=== PATIENT | female | born 1985 | race Hispanic/Latino ===

== ENCOUNTER 2022-05-16 19:52 | Emergency (ER) | payer OTHER, SELFPAY ==
--- NOTE | ~2022-05-16 | XR_ITS ---
EXAMINATION: XR chest 2V DATE: 05/16/2022 21:11 INDICATION: Dizziness TECHNIQUE: PA and lateral views of the chest are obtained. COMPARISON: None available FINDINGS: The lungs are free of acute opacities. No pleural effusion or pneumothorax. The cardiomedia stinal silhouette is normal. There is mild thoracic spondylosis. Bilateral breast implants are noted. IMPRESSION: 1. No acute cardiopulmonary abnormality. Reviewed, dictated and finalized at location F. TRAINER
[2022-05-16 19:58] VITALS: BP 148/98; PULSE 123; RESP 18; TEMP 36.8; O2SAT 99
--- NOTE | 2022-05-16 20:00 | ECG_ITS ---
Measurements Intervals [place] Rate: 115 P: 61 [place]: 176 QRS: 66 QRSD: 83 T: 52 QT: 308 QTc: 427 Interpretive Statements SINUS TACHYCARDIA BORDERLINE T WAVE ABNORMALITY- ANTERIOR LEADS BASELINE ARTIFACT- I, III, AVR, AVL, AVF ABNORMAL ECG NO PREVIOUS ECG AVAILABLE FOR COMPARISON Electronically Signed On 05-17-2022 6:42:39 [employer] by Reza Benavidez D.O.
[2022-05-16 20:26] LABS: Basophils Absolute Auto 0.1 K/mm3 (0.0-0.1); Basophils Percent Auto 0.9 % (0.2-1.2); Eosinophils Absolute Auto 0.1 K/mm3 (0-0.3); Eosinophils Percent Auto 1.6 % (0-4.4); Hematocrit 41.2 % (37.0-47.0); Hemoglobin 14.3 g/dL (12.0-15.0); Immature Granulocyte Absolute 0.01 K/mm3 (0.00-0.031); Immature Granulocyte Percent A 0.2 % (0-0.5); Lymphocytes Absolute Auto 1.74 K/mm3 (0.9-3.2); Lymphocytes Percent Auto 31.2 % (18.3-44.2); Mean Corpuscular HGB Conc 34.7 g/dl (32-36); Mean Corpuscular Hemoglobin 33.3 pg (26-34); Mean Corpuscular Volume 95.8 fl (80-100); Mean Platelet Volume 8.6 fl (7.4-10.4); Monocytes Absolute Auto 0.6 K/mm3 (0.1-0.6); Monocytes Percent Auto 9.9 % (2.6-8.5); Neutrophils Absolute Auto 3.1 K/mm3 (1.3-6.7); Neutrophils Percent Auto 56.2 % (45.5-73.1); Platelet Count Result 206 k/mm3 (150-375); White Blood Count 5.6 K/mm3 (4.5-10.0)
[2022-05-16 20:45] LABS: Partial Thromboplastin Time 28.6 SECONDS (22.3-36.8); Prothrombin Time 12.3 Seconds (11.1-14.7)
[2022-05-16 21:07] LABS: Alanine Aminotransferase 36 U/L (6-35); Albumin Level 4.9 g/dL (3.5-5.1); Alkaline Phosphatase 90 U/L (38-126); Anion Gap 13 mmol/L (8-16); Aspartate Amino Transferase 72 U/L (14-36); Bilirubin,Total 0.6 mg/dL (0.2-1.3); Blood Urea Nitrogen 8 mg/dL (7-17); Calcium 8.7 mg/dL (8.4-10.2); Carbon Dioxide 23 mmol/L (22-30); Chloride 109 mmol/L (98-107); Estimated CRCL calculation 101 ml/min; Estimated Glomerular Filt Rate > 60; Glucose 142 mg/dL (65-110); Lipase 125 U/L (23-300); Potassium 3.5 mmol/L (3.4-5.0); Sodium 145 mmol/L (137-145)
[2022-05-16 21:18] LABS: Troponin I < 0.012 ng/mL (0.000-0.034)
--- NOTE | 2022-05-16 22:11 | PC.NURSE ---
Patient approached intake desk and informed promotion writer that she is going to leave. Patient alert and ambulatory leaving the ED doors.
== END 2022-05-16 22:11 | disposition left against medical advice (07) ==
LOC: ANHED 22:19
PROVIDERS: Emergency Provider Emergency Medicine
DX: R42 Dizziness and giddiness (principal)
CPT/HCPCS: 36415; 71046; 80053; 83690; 84484; 85025; 85610; 85730; 93005; 99199

== ENCOUNTER 2022-11-27 15:35 | Observation (INO) | payer OTHER, SELFPAY ==
[2022-11-27] VITALS (36 sets, daily range): BP systolic 124–139; BP diastolic 89–101; PULSE 79–128; RESP 12–28; TEMP 36.7–37; O2SAT 96–100; BMI 25.0
--- NOTE | ~2022-11-27 | CT_ITS ---
EXAMINATION: CT brain wo con INDICATION: Seizure COMPARISON: None TECHNIQUE: Standard unenhanced head CT. The dose-length product (DLP) was 605.33 mGy-cm. The mA was a djusted according to patient size. Iterative reconstruction technique was employed. FINDINGS: No intracranial hemorrhage, acute infarction, or abnormal mass lesion. The ventricles are n ormal. No abnormal mass effect or midline shift. The forbes-white matter differentiation is normal. The basal cisterns are patent. The orbits are normal. There is mild mucosal thickening of the paranasal sinuses. IMPRESSION: 1. No acute intracranial abnormality. Reviewed, dictated and finalized at location F.
--- NOTE | ~2022-11-27 | XR_ITS ---
EXAMINATION: XR wrist LT min 3V DATE: 11/27/2022 16:37 INDICATION: Left wrist pain TECHNIQUE: Posteroanterior, ulnar deviation, oblique, and lateral views of the left wrist were obtain ed. COMPARISON: None available FINDINGS: No fracture, dislocation, or subluxation. Negative ulnar variance is noted. The soft tissue s are unremarkable. IMPRESSION: 1. No acute osseous abnormality. Reviewed, dictated and finalized at location F.
--- NOTE | 2022-11-27 15:44 | ECG_ITS ---
Measurements Intervals [place] Rate: 105 P: 22 [place]: 172 QRS: 43 QRSD: 88 T: 30 QT: 351 QTc: 465 Interpretive Statements SINUS TACHYCARDIA BORDERLINE T WAVE ABNORMALITY- ANTERIOR LEADS BORDERLINE ECG COMPARED TO ECG 05/16/2022 20:15:59 NO SIGNIFICANT CHANGES Electronically Signed On 11-27-2022 20:37:42 CDT by Reza Benavidez D.O.
[2022-11-27] MEDS: SODIUM CHLORIDE 0.9% IV 1,000 ML 999 ML IV CONT (15:50)
[2022-11-27] MEDS: ONDANSETRON INJ 4 MG/2 ML VIAL IV PUSH (16:03)
[2022-11-27 16:10] LABS: Basophils Percent Auto 0.3 % (0.2-1.2); Eosinophils Absolute Auto 0.1 K/mm3 (0-0.3); Eosinophils Percent Auto 0.7 % (0-4.4); Hematocrit 39.8 % (37.0-47.0); Immature Granulocyte Absolute 0.04 K/mm3 (0.00-0.031); Immature Granulocyte Percent A 0.5 % (0-0.5); Lymphocytes Absolute Auto 1.42 K/mm3 (0.9-3.2); Lymphocytes Percent Auto 19.2 % (18.3-44.2); Mean Corpuscular HGB Conc 32.7 g/dl (32-36); Mean Corpuscular Hemoglobin 32.7 pg (26-34); Mean Platelet Volume 8.9 fl (7.4-10.4); Monocytes Absolute Auto 0.4 K/mm3 (0.1-0.6); Monocytes Percent Auto 5.6 % (2.6-8.5); Neutrophils Absolute Auto 5.4 K/mm3 (1.3-6.7); Neutrophils Percent Auto 73.7 % (45.5-73.1); Platelet Count Result 136 k/mm3 (150-375); Red Blood Count 3.98 M/mm3 (4.2-5.4); Red Cell Distribution Width 13.2 % (11.5-14.5); White Blood Count 7.4 K/mm3 (4.5-10.0)
[2022-11-27 16:20] LABS: Alanine Aminotransferase 48 U/L (6-35); Albumin Level 4.7 g/dL (3.5-5.1); Alkaline Phosphatase 79 U/L (38-126); Anion Gap 19 mmol/L (8-16); Aspartate Amino Transferase 110 U/L (14-36); Bilirubin,Total 0.7 mg/dL (0.2-1.3); Blood Urea Nitrogen 7 mg/dL (7-17); Calcium 8.8 mg/dL (8.4-10.2); Carbon Dioxide 13 mmol/L (22-30); Chloride 105 mmol/L (98-107); Creatine Kinase 173 U/L (30-135); Estimated CRCL calculation 101 ml/min; Estimated Glomerular Filt Rate > 60; Ethanol 38 mg/dL (<10); Glucose 114 mg/dL (65-110); Magnesium 1.7 mg/dL (1.6-2.3); Potassium 3.5 mmol/L (3.4-5.0); Sodium 137 mmol/L (137-145)
--- NOTE | 2022-11-27 16:22 | ED.SEIZURE ---
HPI - Seizure General Chief Complaint: Seizure Stated Complaint: seizure History of Present Illness HPI Narrative: This is a 36-year-old female with history of depression, is brought in by EMS after a reported seizure. EMS reports bystanders noted the patient appeared to be normal, when she fell with seizure-like activity lasting 30 to 45 seconds. On their arrival, the patient was alert though appeared confused. Her mentation gradually improved from A&Ox1 to A&Ox2. EMS also reports, conversation with the patient's significant other at the scene notes she has a history of alcohol abuse. The patient states her last drink was last night. Related Data Allergies Allergy/AdvReac Type Severity Reaction Status Date / Time No Known Allergies Allergy Verified 05/16/22 19:56 Review of Systems Review of Systems: CONSTITUTIONAL: Denies fever, chills, or sweats. CARDIOVASCULAR: Denies chest pain, palpitations, or edema. RESPIRATORY: Denies cough or dyspnea. GASTROINTESTINAL: Denies abdominal pain, nausea, vomiting, or diarrhea. GENITOURINARY: Denies dysuria or hematuria. SKIN: Denies rash or itching. MUSCULOSKELETAL: Denies back pain, joint pain, or myalgia. NEUROLOGIC: Denies headache, numbness, dizziness, or weakness. PSYCHIATRIC: Denies anxiety or depression. [facility] Surgical History Surgical History (Updated 11/27/22 @ 16:31 by Hema Bullock MD) No significant past surgical history Social History Social History (Updated 11/27/22 @ 16:32 by Hema Bullock MD) Smoking status: Never smoker Alcohol intake: current Exam Narrative: GENERAL: Well-developed, well-nourished, and in no acute distress. HEAD: Normocephalic, atraumatic. EYES: PERRLA and EOMI. pupils 4 mm and equal ENT: Nares clear, no rhinorrhea or epistaxis. Mucous membranes moist. Oropharynx without tonsillar hypertrophy exudate or other lesions. CHEST: Clear to auscultation. No respiratory distress. No wheezes rales or rhonchi HEART: Tachycardic with regular rhythm. No murmur heard. Normal peripheral pulses. ABDOMEN: Soft, nontender, nondistended, normal active bowel sounds. EXTREMITIES: Normal range of motion. No edema. SKIN: Warm, dry, no rash. NEURO: Alert and oriented x3. Moving all 4 limbs purposefully. Fine tremor noted PSYCH: Normal mood. Anxious affect Course Course Emergency Course: 17:40 - Lactic acid elevated to 9.1 with CK of 173, consistent with seizure. Chemistries otherwise unremarkable. CBC unremarkable. CT head not concerning for intracranial hemorrhage or fracture. X-ray of the left wrist not concerning for fracture. Alcohol level 38. I suspect the patient's seizures related to alcohol withdrawal. Initial CIWA score 15. Heart rate improved to 95 with IV phenobarbital. I discussed the patient with hospitalist NICHOLAS Chawla who accepts admission Vital Signs Vital signs: Vital Signs Temperature 98.1 F 11/27/22 15:33 Pulse Rate 128 H 11/27/22 15:33 Respiratory Rate 14 11/27/22 15:33 Blood Pressure 139/101 H 11/27/22 15:33 Pulse Oximetry 97 11/27/22 15:33 Oxygen Delivery Room Air 11/27/22 15:33 Temperature 98.1 F 11/27/22 15:33 Pulse Rate 101 H 11/27/22 18:35 Respiratory Rate 12 11/27/22 18:35 Blood Pressure 125/89 11/27/22 16:46 Pulse Oximetry 98 11/27/22 18:35 Oxygen Delivery Room Air 11/27/22 15:43 MDM - Seizure MDM Narrative Medical decision making narrative: Plan: Labs, imaging, [facility] protocol, reassess Differential Diagnosis Differential diagnosis: Likely generalized seizure and other (Alcohol withdrawal, seizure, intracranial hemorrhage, metabolic abnormality, other) Lab Data 11/27/22 16:03 11/27/22 16:03 Labs: Lab Results 11/27/22 Range/Units 16:03 WBC 7.4 (4.5-10.0) K/mm3 RBC 3.98 L (4.2-5.4) M/mm3 Hgb 13.0 (12.0-15.0) g/dL Hct 39.8 (37.0-47.0) % MCV 100.0 (80-100) fl MCH 32.7 (26-34) pg MCHC 32.
[2022-11-27 16:25] LABS: Lactic Acid Reflex 9.1 mmol/L (0.7-2.0)
[2022-11-27] MEDS: PHENobarbitaL sodium (*CRX) 130 MG/ML VIAL 100 MG IV PUSH (17:10)
[2022-11-27 17:26] LABS: Folic Acid 4.6 ng/mL (2.76->20)
[2022-11-27 19:07] LABS: Reflex Lactic Acid Yes or No Add Lactic
[2022-11-27] MEDS: THIAMINE HCL 200 MG/2 ML VIAL 100 MG IV PUSH (19:27)
--- NOTE | 2022-11-27 19:28 | PC.NURSE ---
Report received from LEIGH ANN Mata. Assumed care of patient at this time.
[2022-11-27 19:48] LABS: Lactic Acid 1.6 mmol/L (0.7-2.0)
--- NOTE | 2022-11-27 20:16 | PC.NURSE ---
Pt is currently being boarded in ED for IMU. Patient is not under my care. Admission completed by this RN.
--- NOTE | 2022-11-27 20:25 | PM.IMHP ---
H&P: HPI History of Present Illness Date/Time: 11/27/22 20:25 Chief Complaint: SEIZURE Narrative: THIS IS A 36-YEAR-OLD FEMALE WITH PAST MEDICAL HISTORY SIGNIFICANT FOR ALCOHOL DEPENDENCE PATIENT DRINKS 3 GLASSES OF WINE ON A DAILY BASIS, WAS BROUGHT TO THE EMERGENCY ROOM TODAY FOR EVALUATION AFTER SHE HAD A SEIZURE OR WHILE SHE WAS AT WORK WAS CLOCKED SONAL OUT FOR A BREAK WHEN SHE COLLAPSED. PATIENT ALCOHOL LEVEL WAS 38. AT THE TIME OF MY VISIT PATIENT IN TREMORS EXPRESSES REMORSE ABOUT HER DRINK AND STATES THAT SHE WANTS TO QUIT. REPORTS VERTIGO AND DIZZINESS AFTER HAVING TRAUMA TO THE HEAD WHILE RIDING HER BICYCLE AND BELIEVES THAT THE ALCOHOL IS MAKING IT WORSE HAS BEEN TAKING [id number] ANTI E VERTIGO MEDICATION. PATIENT HAS BEEN ADMITTED FOR FURTHER EVALUATION MANAGEMENT AND TREATMENT. EXAMINATION: XR wrist LT min 3V DATE: 11/27/2022 16:37 INDICATION: Left wrist pain TECHNIQUE: Posteroanterior, ulnar deviation, oblique, and lateral views of the left wrist were obtained. COMPARISON: None available FINDINGS: No fracture, dislocation, or subluxation. Negative ulnar variance is noted. The soft tissues are unremarkable. IMPRESSION: 1. No acute osseous abnormality. EXAMINATION: CT brain wo con ? INDICATION: Seizure ? COMPARISON: None TECHNIQUE: Standard unenhanced head CT. The dose-length product (DLP) was 605.33 mGy-cm. The mA was adjusted according to patient size. Iterative reconstruction technique was employed. ? FINDINGS: No intracranial hemorrhage, acute infarction, or abnormal mass lesion. The ventricles are normal. No abnormal mass effect or midline shift. The forbes-white matter differentiation is normal. The basal cisterns are patent. The orbits are normal. There is mild mucosal thickening of the paranasal sinuses. ? IMPRESSION: 1. No acute intracranial abnormality. Review of Systems Review of Systems: SEIZURE, ALCOHOL DEPENDENCE. Constitutional: Constitutional: Denies chills, Denies fatigue, Denies fever(s), Denies malaise and Denies weakness Eyes: Eyes: Denies change in vision ENT: Denies dysphagia, Reports vertigo, Reports dizziness and Denies odynophagia Cardiovascular: Cardiovascular: Denies chest pain, Denies radiating jaw, neck or arm pain and Denies palpitations Respiratory: Respiratory: Denies cough and Denies dyspnea Gastrointestinal: Gastrointestinal: Denies abdominal pain, Denies dyspepsia, Denies heartburn, Denies diarrhea, Denies nausea and Denies vomiting Genitourinary: Genitourinary: Denies dysuria Musculoskeletal: Musculoskeletal: Denies arthralgias and Denies limited range of motion Integumentary/Breasts: Skin/Breast: Denies rash Neurologic: Reports vertigo, Reports dizziness, Denies focal weakness, Reports seizure-like activity and Denies Sensory deficit (Neuro) Psychiatric: Psychiatric: Reports no additional psychiatric complaints and Reports as per HPI Endocrine: Endocrine: Denies fatigue, Denies flushing, Denies heat intolerance, Denies polyphagia, Denies polydipsia and Denies palpitations Hematologic/Lymphatic: Hematologic/Lymphatic: Reports no additional hematologic/lymphatic complaints and Reports as per HPI Allergic/Immunologic: Allergic/Immunologic: Reports no additional allergic/immunologic complaints and Reports as per HPI PMFSH Surgical History Surgical History (Updated 11/27/22 @ 16:31 by Hema Bullock MD) No significant past surgical history Family History Family History (Updated 11/27/22 @ 22:13 by Bernadine Rutherford RN) Sibling Diabetes mellitus Father Alcohol abuse Social History Social History (Updated 11/27/22 @ 16:32 by Heam Bullock MD) Smoking status: Never smoker Alcohol intake: current Drinks per week: 4 Lack of Transportation: No Lack of Food: Never True Current Housing: I Have Housing Concerned About Future Housing: No Difficulty Paying Gas/Electric Bills: No Difficulty Paying for Me
--- NOTE | 2022-11-27 21:31 | ADMGEN ---
This patient, Bridget Mcneal, was admitted to Medical Room 254-01. Patient/family oriented to hospital policies and general routines including ID bracelet, bed and alarms, visiting hours, pain management, procedures, bathroom and other care routines, personal items, smoking policy, room service/diet, and visiting hours. Information on how to activate the Rapid Response Team has been discussed. Patient/Family are encouraged to report perceived risks to care and to ask questions if they do not understand what they are told or what they should do.
[2022-11-27] MEDS: LORazepam INJ (*CRX) 2 MG/ML VIAL IV PUSH (21:53)
[2022-11-27 22:07] LABS: Glucose Point of Care 107 mg/dl (65-105)
[2022-11-27] MEDS: chlordiazePOXIDE (*CRX) 25 MG CAPSULE 50 MG PO (22:50)
[2022-11-28] VITALS (9 sets, daily range): BP systolic 118–133; BP diastolic 84–97; PULSE 89–101; RESP 12–16; TEMP 36.7–37.2; O2SAT 93–100
[2022-11-28] MEDS: chlordiazePOXIDE (*CRX) 25 MG CAPSULE 50 MG PO (05:38)
--- NOTE | 2022-11-28 05:52 | PC.NURSE ---
ACCUCHECK 63, ORANGE JUICE GIVEN TO PT, WILL RECHECK
[2022-11-28 05:56] LABS: Glucose Point of Care 63 mg/dl (65-105)
[2022-11-28 05:57] LABS: Basophils Percent Auto 0.3 % (0.2-1.2); Eosinophils Percent Auto 0.6 % (0-4.4); Hematocrit 38.9 % (37.0-47.0); Immature Granulocyte Absolute 0.02 K/mm3 (0.00-0.031); Immature Granulocyte Percent A 0.3 % (0-0.5); Immature Platelet Fraction Pct 4.2 % (0.9-11.2); Lymphocytes Absolute Auto 1.11 K/mm3 (0.9-3.2); Lymphocytes Percent Auto 17.6 % (18.3-44.2); Mean Corpuscular HGB Conc 33.4 g/dl (32-36); Mean Corpuscular Hemoglobin 33.2 pg (26-34); Mean Corpuscular Volume 99.2 fl (80-100); Mean Platelet Volume 9.7 fl (7.4-10.4); Monocytes Absolute Auto 0.5 K/mm3 (0.1-0.6); Monocytes Percent Auto 7.5 % (2.6-8.5); Neutrophils Absolute Auto 4.6 K/mm3 (1.3-6.7); Neutrophils Percent Auto 73.7 % (45.5-73.1); Platelet Count Result 139 k/mm3 (150-375); Red Blood Count 3.92 M/mm3 (4.2-5.4); White Blood Count 6.3 K/mm3 (4.5-10.0)
[2022-11-28 06:05] LABS: Anion Gap 11 mmol/L (8-16); Blood Urea Nitrogen 5 mg/dL (7-17); Calcium 8.4 mg/dL (8.4-10.2); Carbon Dioxide 19 mmol/L (22-30); Chloride 104 mmol/L (98-107); Estimated CRCL calculation 101 ml/min; Estimated Glomerular Filt Rate > 60; Glucose 68 mg/dL (65-110); Potassium 3.4 mmol/L (3.4-5.0); Sodium 134 mmol/L (137-145)
--- NOTE | 2022-11-28 06:20 | PC.NURSE ---
ACCUCHECK 80
[2022-11-28 06:21] LABS: Glucose Point of Care 80 mg/dl (65-105)
[2022-11-28] MEDS: THIAMINE HCL 200 MG/2 ML VIAL 100 MG IV PUSH (09:00)
[2022-11-28 12:03] LABS: Glucose Point of Care 80 mg/dl (65-105)
--- NOTE | 2022-11-28 12:24 | PM.IMPN ---
Progress Note: A&P Assessment and Plan (1) Alcohol withdrawal: Qualifiers: Complication of substance-induced condition: with unspecified complication Qualified Code(s): F10.939 - Alcohol use, unspecified with withdrawal, unspecified Code(s): F10.939 - Alcohol use, unspecified with withdrawal, unspecified Status: Acute Assessment and Plan: patient drinks approximately 3 glasses of wine daily. CIWA protocol initiated. Ativan CIWA greater than 8 Librium CIWA greater than 12 Thiamine daily (2) Generalized seizure: Code(s): R56.9 - Unspecified convulsions Status: Acute Assessment and Plan: Patient's suspected seizure could be due to alcohol withdrawal or a generalized seizure.She denies loss of urinary / bowel control or biting her tongue. No history of seizures in the past. No history of withdrawal in the past. Neurology consulted. EEG ordered (3) Alcohol dependence: Code(s): F10.20 - Alcohol dependence, uncomplicated Status: Acute Assessment and Plan: Patient mentioned interest in alcohol cessation. Care coordination consulted Subjective Date/time seen: 11/28/22 12:24 Interval history: Patient states that she is very fatigued and tired. She does not remember event at work where she has suspected seizure. She denies any lightheadedness, dizziness, nausea, vomiting, visual disturbances, chest pain shortness a breath. She denies ever having prior seizure or having any symptoms of withdrawal. She does have some tremors in her hands although she states that this is not typical for her. Neurology consulted due to possibility that patient had generalized seizure that was not alcohol related. EEG was ordered. Exam Narrative: GENERAL: Comfortable, no acute distress HENMT: moist mucous membranes EYES: EOM intact b/l NECK: no lymphadenopathy RESPIRATORY: clear to auscultation CARDIO: RRR GI: soft, nontender, bowel sounds present SKIN: no rashes EXTREMITIES: no edema, redness or tenderness , tremors present in bilateral hands Objective Data Vital Signs Vital Signs: Vital Signs - 24 hr 11/27/22 15:33 11/27/22 15:42 11/27/22 15:43 Temperature 98.1 F Pulse Rate 128 H Respiratory Rate 14 Blood Pressure 139/101 H Pulse Oximetry 97 Oxygen Delivery Room Air Room Air Room Air 11/27/22 15:45 11/27/22 15:43 11/27/22 15:45 Temperature Pulse Rate 116 H 120 H 115 H Respiratory Rate 16 16 Blood Pressure Pulse Oximetry 98 96 Oxygen Delivery 11/27/22 15:46 11/27/22 16:00 11/27/22 16:06 Temperature Pulse Rate 116 H 114 H 109 H Respiratory Rate 15 16 14 Blood Pressure 125/93 H 125/95 H Pulse Oximetry 97 100 Oxygen Delivery 11/27/22 16:15 11/27/22 16:16 11/27/22 16:31 Temperature Pulse Rate 105 H 106 H 104 H Respiratory Rate 15 16 15 Blood Pressure 126/95 H 124/89 Pulse Oximetry 100 100 100 Oxygen Delivery 11/27/22 16:32 11/27/22 16:45 11/27/22 16:46 Temperature Pulse Rate 99 102 H 99 Respiratory Rate 17 17 16 Blood Pressure 125/89 Pulse Oximetry 100 99 99 Oxygen Delivery 11/27/22 17:01 11/27/22 17:15 11/27/22 17:30 Temperature Pulse Rate 100 98 91 Respiratory Rate 16 13 14 Blood Pressure Pulse Oximetry 100 100 99 Oxygen Delivery 11/27/22 17:45 11/27/22 18:01 11/27/22 18:15 Temperature Pulse Rate 93 111 H 104 H Respiratory Rate 13 20 21 H Blood Pressure Pulse Oximetry 100 100 100 Oxygen Delivery 11/27/22 18:35 11/27/22 18:55 11/27/22 19:00 Temperature Pulse Rate 101 H 100 106 H Respiratory Rate 12 20 15 Blood Pressure Pulse Oximetry 98 100 100 Oxygen Delivery 11/27/22 19:07 11/27/22 19:17 11/27/22 19:30 Temperature Pulse Rate 103 H 122 H 107 H Respiratory Rate 16 28 H 18 Blood Pressure 127/98 H Pulse Oximetry 100 98 Oxygen Delivery 11/27/22 19:40 11/27/22 19:46 11/27/22 20:00 Te
== END 2022-11-28 17:24 | disposition left against medical advice (07) ==
LOC: ANHED 17:45 → ANH3MEDSUR 19:22 → ANH2MED 21:17
PROVIDERS: Admitting Provider Internal Medicine; Emergency Provider Preventive Medicine Aerospace Medicine; PCP Nurse Practitioner; Visit Provider General Practice
DX: F10.939 Alcohol use, unspecified with withdrawal, unspecified (principal); Y90.1 Blood alcohol level of 20-39 mg/100 ml; R56.9 Unspecified convulsions; R42 Dizziness and giddiness; R00.0 Tachycardia, unspecified; M25.532 Pain in left wrist
CPT/HCPCS: 36415; 70450; 73110; 80048; 80053; 80307; 82550; 82607; 82746; 82948; 83605; 83735; 84425; 85025; 85055; 93005; 96361; 96374; 96375; 99285; A9270; G0378; G0379; J2060; J2405; J2560; J3411; J7030

== ENCOUNTER 2023-10-10 18:34 | Emergency (ER) | payer MEDICAID, SELFPAY ==
[2023-10-10] VITALS (11 sets, daily range): BP systolic 101–144; BP diastolic 68–91; PULSE 91–126; RESP 16–97; TEMP 36.6–36.8; O2SAT 24–100
--- NOTE | ~2023-10-10 | CT_ITS ---
CT brain wo con Ordering provider: Parish Petit MD History: 37 years Female with . fall w/ etoh . Comparison: None. Technique: CT of the head without contrast. Radiation reduction technique utilized. DLP is 681 mGy-cm. FINDINGS: BRAIN PARENCHYMA AND CSF SPACES: Mild leukoaraiosis and diffuse cortical atrophy. Mild atheromatous d isease. No midline shift, mass effect or hemorrhage. The brain parenchyma and CSF spaces are otherwi se normal. VISUALIZED PARANASAL SINUSES: Well aerated. MASTOIDS: Well aerated. BONES: The bones appear intact. SOFT TISSUES: Visualized nasopharynx is normal. Superficial soft tissues are normal. IMPRESSION: No acute intracranial findings. Reviewed, dictated and finalized at location A.
--- NOTE | ~2023-10-10 | CT_ITS ---
CT cervical spine wo con Ordering provider: Parish Petit MD History: . fall w/ etoh . Comparison: None. Technique: CT of the cervical spine was performed without contrast. Sagittal and coronal reformatted images were also obtained and reviewed. Automated exposure control and iterative reconstruction shakira hnique were employed. The dose-length product was 397.97 mGy-cm. FINDINGS: VERTEBRAE: No subluxation or acute fracture. The occipital condyles are intact. DISC SPACES: Normal. PARASPINOUS SOFT TISSUES: Normal. IMPRESSION: No acute osseous abnormality cervical spine. Reviewed, dictated and finalized at location A.
--- NOTE | 2023-10-10 19:14 | ED.FALL ---
HPI - Fall General Chief Complaint: Fall Stated Complaint: FALL Time Seen by Provider: 10/10/23 18:59 History of Present Illness HPI Narrative: This is a 37 year female with a past medical history including alcohol dependence and closed head injuries in the past with TBI. Today patient presents as a follow-up intoxicated via EMS. Patient does have evidence of obvious head trauma as clinically intoxicated, slurring her speech, smells of alcohol, not making any coherent sense. Patient is verbally aggressive and threatening to staff. Patient is refusing to undergo evaluation but is not able to make her own medical decisions at this time given her clinical intoxication and other suspicious pathology such as intracranial hemorrhage which is high differential in her situation. Review of systems is difficult to obtain as patient is not cooperative. Related Data Home Medications Medication Instructions Recorded Confirmed dimenhydrinate 50 mg tablet 50 mg PO Q4-6H PRN DIZZINESS 11/27/22 11/27/22 (Dramamine) Allergies Allergy/AdvReac Type Severity Reaction Status Date / Time No Known Allergies Allergy Verified 10/10/23 18:43 Review of Systems Review of Systems: Unable to fully obtain due to patient's level of mental status [facility] Surgical History Surgical History No significant past surgical history Family History Family History Sibling Diabetes mellitus Father Alcohol abuse Social History Social History Smoking status: Never smoker Alcohol intake: current Drinks per week: 4 Lack of Transportation: No Lack of Food: Never True Current Housing: I Have Housing Concerned About Future Housing: No Difficulty Paying Gas/Electric Bills: No Difficulty Paying for Meds: No Currently Unemployed: No Education: Bachelor's Degree Difficulty w/ Childcare or Family Care: No Spiritual care concerns: No Exam Narrative: GENERAL: Clinically intoxicated, disheveled in appearance, aggressive verbally threatening HEAD: Normocephalic without obvious signs of head trauma with hematoma formation behind the left periauricular area with laceration to the external auricle. EYES: [PERRLA and EOMI.] Pupils are 4 mm and reactive, conjunctival injection is noted ENT: Nares clear, no rhinorrhea or epistaxis. Mucous membranes dry NECK: Supple. CHEST: [Clear to auscultation. No respiratory distress.] HEART: Tachycardic pulse of warm perfused extremities ABDOMEN: [Soft, nondistended], [nontender], [No rigidity or guarding] EXTREMITIES: Normal range of motion. [No edema.] SKIN: Warm, dry, no rash. NEURO: Seems to move all extremities equally, not alert or oriented, clinically intoxicated, limited examination due to patient's level of mental status and uncooperative nature PSYCH: Verbally aggressive, agitated, combative Course Vital Signs Vital signs: Vital Signs Temperature 36.7 C 10/10/23 18:35 Pulse Rate 126 H 10/10/23 18:35 Respiratory Rate 16 10/10/23 18:35 Blood Pressure 144/91 H 10/10/23 18:35 Pulse Oximetry 100 10/10/23 18:35 Oxygen Delivery Room Air 10/10/23 18:35 Temperature 36.6 C 10/10/23 22:12 Pulse Rate 103 H 10/11/23 00:30 Respiratory Rate 15 10/11/23 00:30 Blood Pressure 101/60 10/11/23 00:30 Pulse Oximetry 100 10/11/23 00:30 Oxygen Delivery Nasal Cannula 10/10/23 19:49 Oxygen Flow Rate 2 10/10/23 19:49 Procedures Laceration Laceration 1: Date: 10/10/23 Time: 19:43 Site: other (left ear, auricle) Side (If applicable): left Size (cm): 1 Description: linear Depth: [id number] Local Anesthetic: none Pre-repair: wound explored, irrigated and minor debridement ====== Skin Level ======
[2023-10-10] MEDS: MIDAZOLAM HCL (*CRX) 2 MG/2 ML VIAL IM (19:18)
[2023-10-10] MEDS: HALOPERIDOL LACTATE 5 MG/ML VIAL IM (19:19)
--- NOTE | 2023-10-10 19:26 | PC.NURSE ---
Patient was making racist remarks towards staff and slapping and hitting staff. Per EDP Dr. Omalley VRBO 2mg Versed and 5mg Haldol both IM. During medication administration patient was still slapping and hitting nursing staff and security. Per EDP Dr. Omalley place patient into soft restraints. Soft restraints were obtained, however patient was able to be calmed down and de-escalated. Soft restraints still not applied but at bedside if needed.
[2023-10-10 19:43] LABS: Basophils Percent Auto 0.9 % (0.2-1.2); Eosinophils Absolute Auto 0.1 K/mm3 (0-0.3); Eosinophils Percent Auto 1.3 % (0-4.4); Hematocrit 38.3 % (37.0-47.0); Immature Granulocyte Absolute 0.02 K/mm3 (0.00-0.031); Immature Granulocyte Percent A 0.4 % (0-0.5); Lymphocytes Absolute Auto 1.73 K/mm3 (0.9-3.2); Lymphocytes Percent Auto 37.9 % (18.3-44.2); Mean Corpuscular HGB Conc 33.9 g/dl (32-36); Mean Corpuscular Hemoglobin 33.3 pg (26-34); Mean Corpuscular Volume 98.2 fl (80-100); Mean Platelet Volume 8.8 fl (7.4-10.4); Monocytes Absolute Auto 0.5 K/mm3 (0.1-0.6); Monocytes Percent Auto 11.2 % (2.6-8.5); Neutrophils Absolute Auto 2.2 K/mm3 (1.3-6.7); Neutrophils Percent Auto 48.3 % (45.5-73.1); Platelet Count Result 204 k/mm3 (150-375); Red Cell Distribution Width 13.8 % (11.5-14.5); White Blood Count 4.6 K/mm3 (4.5-10.0)
[2023-10-10 19:53] LABS: Alanine Aminotransferase 38 U/L (6-35); Albumin Level 4.4 g/dL (3.5-5.1); Alkaline Phosphatase 79 U/L (38-126); Anion Gap 19 mmol/L (4-12); Aspartate Amino Transferase 51 U/L (14-36); Bilirubin,Total 0.2 mg/dL (0.2-1.3); Blood Urea Nitrogen 7 mg/dL (7-17); Calcium 8.7 mg/dL (8.4-10.2); Carbon Dioxide 20 mmol/L (22-30); Chloride 109 mmol/L (98-107); Estimated CRCL calculation 100 ml/min; Estimated Glomerular Filt Rate > 60; Glucose 103 mg/dL (65-110); Potassium 3.7 mmol/L (3.4-5.0); Sodium 148 mmol/L (137-145)
[2023-10-10 20:06] LABS: Ethanol 423 mg/dL (<10)
[2023-10-10 20:09] LABS: Beta HCG Quantitative < 2.39 mIU/ML
[2023-10-10] MEDS: THIAMINE HCL INJ 100 MG, FOLIC ACID INJ 1 MG, MAGNESIUM SULFATE INJ 1 GM in LACTATED RI... 1000 MG IV CONT (20:15)
[2023-10-10] MEDS: TETANUS,DIPHTHERIA,AC PERTUSSIS ADULT (0.5 ML) BOOSTRIX IM (20:19)
[2023-10-10 23:41] LABS: Anion Gap 13 mmol/L (4-12); Blood Urea Nitrogen 5 mg/dL (7-17); Calcium 8.2 mg/dL (8.4-10.2); Carbon Dioxide 24 mmol/L (22-30); Chloride 109 mmol/L (98-107); Estimated CRCL calculation 100 ml/min; Estimated Glomerular Filt Rate > 60; Glucose 90 mg/dL (65-110); Potassium 3.7 mmol/L (3.4-5.0); Sodium 146 mmol/L (137-145)
[2023-10-11 00:30] VITALS: BP 101/60; PULSE 103; RESP 15; O2SAT 100
== END 2023-10-11 01:04 | disposition home or self-care (01) ==
PROVIDERS: Emergency Provider Student in an Organized Health Care Education/Training Program; PCP Nurse Practitioner
DX: S01.312A Laceration without foreign body of left ear, initial encounter (principal); F10.229 Alcohol dependence with intoxication, unspecified; Y90.8 Blood alcohol level of 240 mg/100 ml or more; Z23 Encounter for immunization; W19.XXXA Unspecified fall, initial encounter
CPT/HCPCS: 12011; 36415; 70450; 72125; 80048; 80053; 80307; 83735; 84702; 85025; 90471; 90715; 96365; 96372; 99284; J1630; J2250; J3411; J3475; J7120

== ENCOUNTER 2024-01-08 17:07 | Emergency (ER) | payer BC, SELFPAY ==
--- NOTE | ~2024-01-08 | CT_ITS ---
EXAMINATION: CT cervical spine wo con DATE: 01/08/2024 17:31 INDICATION: Fall TECHNIQUE: Computed tomography (CT) of the cervical spine was performed without intravenous contrast. Automated exposure control and iterative reconstruction technique were employed. Exam dose: 251.92 mGy-cm total exam DLP. COMPARISON: None FINDINGS: Normal alignment at the atlantoaxial joints. C1 and C2 are normally aligned and the odontoi d process is intact. No fracture or dislocation or locked facet or prevertebral soft tissue swelling. Cervical interspaces are preserved. IMPRESSION: No cervical spine fracture, dislocation or locked facet Reviewed, dictated and finalized at [facility]. Reviewed, dictated and finalized at [facility].
--- NOTE | ~2024-01-08 | CT_ITS ---
EXAMINATION: CT brain wo con DATE: 01/08/2024 17:31 INDICATION: Fall. Head injury. TECHNIQUE: Computed tomography (CT) of the head was performed without intravenous contrast. The mA wa s adjusted according to patient size. Iterative reconstruction technique was employed. Exam dose: 60 5.33 mGy-cm total exam DLP. COMPARISON: 10/10/2023 CT head FINDINGS: No intracranial mass lesion or hemorrhage or cerebrovascular accident. No midline shift or mass effect. There is greater than expected prominence of the cortical sulci and cerebellar folia con sistent with cerebral and cerebellar volume loss for patient age. No subdural or epidural hematoma. No fracture or bone destruction of the cranial vault. The mastoid air cells and included paranasal si nuses are unremarkable. IMPRESSION: No acute intracranial finding or skull fracture Reviewed, dictated and finalized at [facility]. Reviewed, dictated and finalized at [facility].
[2024-01-08 17:06] VITALS: BP 127/87; PULSE 102; RESP 14; TEMP 36.8; O2SAT 100
--- NOTE | 2024-01-08 17:14 | ECG_ITS ---
Test Date: 2024-01-08 17:38:39 Measurements Intervals [place] Rate: 91 P: -11 NV: 132 QRS: 44 QRSD: 94 T: 48 QT: 348 QTc: 430 Interpretive Statements SINUS RHYTHM NORMAL ECG No previous ECG available for comparison Electronically Signed On 01-09-2024 13:06:26 CDT by Adriano Victoria M.D.
--- NOTE | 2024-01-08 17:17 | ED.FALL ---
HPI - Fall General Chief Complaint: Fall Stated Complaint: fall, +ETOH Time Seen by Provider: 01/08/24 17:07 Source: patient Mode of arrival: ambulatory Limitations: no limitations History of Present Illness HPI Narrative: this is a 38-year-old female with history of alcohol dependence who presents to the ED via EMS for chief complaint of of fall while intoxicated. Patient does report that she think she fell down and hit her head on a rock. States that she was with her friend at the time who called EMS. She states that she had a glass a wine around 2:00 a.m. but has not had any other alcohol or substances. Patient states that she has a little bit of a headache but this has been ongoing intermittently for several years and not out of the ordinary. States that she has history of closed head injury with TBI in the past. overall patient is not a significantly reliable historian. she tried to refuse EMS transport but EMS informed the ED the patient was unable to walk on her own. Related Data Home Medications Medication Instructions Recorded Confirmed dimenhydrinate 50 mg tablet 50 mg PO Q4-6H PRN DIZZINESS 11/27/22 11/27/22 (Dramamine) Allergies Allergy/AdvReac Type Severity Reaction Status Date / Time No Known Allergies Allergy Verified 01/08/24 18:10 Review of Systems Review of Systems: All systems as dictated in [facility] Surgical History Surgical History No significant past surgical history Family History Family History Sibling Diabetes mellitus Father Alcohol abuse Social History Social History Smoking status: Never smoker Alcohol intake: current Drinks per week: 4 Lack of Transportation: No Lack of Food: Never True Current Housing: I Have Housing Concerned About Future Housing: No Difficulty Paying Gas/Electric Bills: No Difficulty Paying for Meds: No Currently Unemployed: No Education: Bachelor's Degree Difficulty w/ Childcare or Family Care: No Spiritual care concerns: No Exam Narrative: GENERAL: appears clinically intoxicated. Able to sit up in bed and hold a conversation. HEAD: Normocephalic, atraumatic. EYES: PERRLA and EOMI. ENT: Nares clear, no rhinorrhea or epistaxis. Mucous membranes moist. Oropharynx without tonsillar hypertrophy exudate or other lesions. NECK: Supple. No adenopathy or masses. CHEST: No respiratory distress. Clear to auscultation. No wheezes rales or rhonchi HEART: Regular rate and rhythm. No murmur heard. Normal peripheral pulses. ABDOMEN: Soft, nontender, nondistended, normal active bowel sounds. MSK: Normal range of motion. No edema. SKIN: Warm, dry, no rash. NEURO: Clinically intoxicated. Slurring words and speech is at times incoherent, However answers most questions somewhat appropriately. Alert and oriented x4. No focal deficits. PSYCH: Normal mood and affect. Course Vital Signs Vital signs: Vital Signs Temperature 98.2 F 01/08/24 17:06 Pulse Rate 102 H 01/08/24 17:06 Respiratory Rate 14 01/08/24 17:06 Blood Pressure 127/87 01/08/24 17:06 Pulse Oximetry 100 01/08/24 17:06 Oxygen Delivery Room Air 01/08/24 17:06 Temperature 98 F 01/08/24 19:46 Pulse Rate 72 01/08/24 19:46 Respiratory Rate 22 H 01/08/24 19:46 Blood Pressure 134/76 01/08/24 19:46 Pulse Oximetry 98 01/08/24 19:46 Oxygen Delivery Room Air 01/08/24 17:06 MDM - Fall MDM Narrative Medical decision making narrative: This is a 38 yo female who presents to the ED for a fall while intoxicated. Patient reports to of drink 1 glass of wine. Vitals are normal. Exam shows patient is clinically intoxicated. There is no focal neurologic deficit detected on exam. Lab work shows an alcohol level 480. CMP showed slight hypernatremia and hyperchloremia, likely due to decreased intake of water. TSH slightly low as well. Started on IV fluids here Cervical spine and brain CT imaging do not show any acute findings. Patient was able to get a sober ride back home and will be discharged in stable condition. Supportive measures discussed and return precautions given. Patient is understanding and agreeable with plan for discharge with PCP follow-up. Lab Data 01/08/24 17:21 01/08/24 17:21 Labs: Lab Results 10/26/24 Range/Units 17:21 WBC 4.5 (4.5-10.0) K/mm3 RBC 4.28 (4.2-5.4) M/mm3 Hgb 14.5 (12.0-15.0) g/dL Hct 41.9 (37.0-47.0) % MCV 97.9 (80-100) fl MCH 33.9 (26-34) pg MCHC 34.6 (32-36) g/dl RDW 13.0 (11.5-14.5) % Plt Count 228 (150-375) k/mm3 MPV 8.5 (7.4-10.4) fl Immature Gran % (Auto) 0.2 (0-0.5) % Neut % (Auto) 45.1 L (45.5-73.1) % Lymph % (Auto) 47.0 H (18.3-44.2) % Caroline % (Auto) 6.2 (2.6-8.5) % Eos % (Auto) 1.1 (0-4.4) % Baso % (Auto) 0.4 (0.2-1.2) % Lymph # (Auto) 2.12 (0.9-3.2) K/mm3 Caroline # (Auto) 0.3 (0.1-0.6) K/mm3 Eos # (Auto) 0.1 (0-0.3) K/mm3 Baso # (Auto) 0.0 (0.0-0.1) K/mm3 Abs Immat Gran (auto) 0.01 (0.00-0.031) K/mm3 Absolute Neuts (auto) 2.0 (1.3-6.7) K/mm3 Absolute Nucleated RBC 0.000 (0.0-0.012) K/mm3 Nucleated RBC % 0.0 (0.0-0.2) % PT 12.2 (11.1-14.7) Seconds INR 0.9 APTT 27.5 (22.3-36.8) Seconds Sodium 148 H (137-145) mmol/L Potassium 3.5 (3.4-5.0) mmol/L Chloride 111 H (98-107) mmol/L Carbon Dioxide 28 (22-30) mmol/L Anion Gap 9 (4-12) mmol/L BUN 8 (7-17) mg/dL Creatinine 0.60 L (0.7-1.0) mg/dL Estim Creat Clear Calc Not Reportable Estimated GFR > 60 (59 - ) Glucose 91 (65-110) mg/dL Lactic Acid 1.6 (0.7-2.0) mmol/L Calcium 8.2 L (8.4-10.2) mg/dL Total Bilirubin 0.3 (0.2-1.3) mg/dL AST 36 (14-36) U/L ALT 15 (6-35) U/L Alkaline Phosphatase 68 (38-126) U/L Total Creatine Kinase 249 H (30-135) U/L Total Protein 8.0 (6.3-8.2) g/dL Albumin 4.2 (3.5-5.1) g/dL TSH 0.136 L (0.465-4.680) uIU/mL Ethyl Alcohol 480 H* (<10) mg/dL ECG Data EKG #1: ECG completion date: 01/08/24 ECG completion time: 17:38 Prior ECG tracings: not available for review Interpretation: Sinus rhythm Rate 91 Normal QRS Normal QTC No acute ischemic findings Discharge Plan Discharge Clinical Impression: Alcohol abuse Patient Disposition: Home, Self-Care Condition: Stable Instructions: Antibiotic Form Additional Instructions: Your exam and imaging are reassuring. Please refrain from abusing alcohol in the future. Follow-up with your PCP on this issue. If you have any new or worsening symptoms please return to the ER for further evaluation. Prescriptions: No Action dimenhydrinate [Dramamine] 50 mg Tablet 50 mg PO Q4-6H PRN (Reason: DIZZINESS) Follow-up/Referrals: Irma,RIA Estes [Primary Care Provider] - Time of Disposition: 19:27
[2024-01-08 17:27] LABS: Basophils Percent Auto 0.4 % (0.2-1.2); Eosinophils Absolute Auto 0.1 K/mm3 (0-0.3); Eosinophils Percent Auto 1.1 % (0-4.4); Hematocrit 41.9 % (37.0-47.0); Hemoglobin 14.5 g/dL (12.0-15.0); Immature Granulocyte Absolute 0.01 K/mm3 (0.00-0.031); Immature Granulocyte Percent A 0.2 % (0-0.5); Lymphocytes Absolute Auto 2.12 K/mm3 (0.9-3.2); Mean Corpuscular HGB Conc 34.6 g/dl (32-36); Mean Corpuscular Hemoglobin 33.9 pg (26-34); Mean Corpuscular Volume 97.9 fl (80-100); Mean Platelet Volume 8.5 fl (7.4-10.4); Monocytes Absolute Auto 0.3 K/mm3 (0.1-0.6); Monocytes Percent Auto 6.2 % (2.6-8.5); Neutrophils Percent Auto 45.1 % (45.5-73.1); Platelet Count Result 228 k/mm3 (150-375); Red Blood Count 4.28 M/mm3 (4.2-5.4); White Blood Count 4.5 K/mm3 (4.5-10.0)
[2024-01-08 17:37] LABS: INR 0.9; Prothrombin Time 12.2 Seconds (11.1-14.7)
[2024-01-08 17:38] LABS: Partial Thromboplastin Time 27.5 Seconds (22.3-36.8)
--- NOTE | 2024-01-08 17:40 | PC.NURSE ---
pt states she urinated while in CT
[2024-01-08 18:01] LABS: Alanine Aminotransferase 15 U/L (6-35); Albumin Level 4.2 g/dL (3.5-5.1); Alkaline Phosphatase 68 U/L (38-126); Anion Gap 9 mmol/L (4-12); Aspartate Amino Transferase 36 U/L (14-36); Bilirubin,Total 0.3 mg/dL (0.2-1.3); Blood Urea Nitrogen 8 mg/dL (7-17); Calcium 8.2 mg/dL (8.4-10.2); Carbon Dioxide 28 mmol/L (22-30); Chloride 111 mmol/L (98-107); Estimated Glomerular Filt Rate > 60; Glucose 91 mg/dL (65-110); Lactic Acid Reflex 1.6 mmol/L (0.7-2.0); Potassium 3.5 mmol/L (3.4-5.0); Sodium 148 mmol/L (137-145)
[2024-01-08 18:04] LABS: Creatine Kinase 249 U/L (30-135)
[2024-01-08] MEDS: SODIUM CHLORIDE 0.9% IV 1,000 ML 999 ML IV CONT (18:11)
[2024-01-08 18:19] LABS: Ethanol 480 mg/dL (<10)
[2024-01-08 18:20] LABS: Thyroid Stimulating Hormone 0.136 uIU/mL (0.465-4.680)
--- NOTE | 2024-01-08 19:05 | PC.NURSE ---
pt ambulated approx 80 ft with minimal assistance.
--- NOTE | 2024-01-08 19:41 | PC.NURSE ---
per Magdalena, this patient was able to ambulate approximately 80 ft, without difficulty. This RN watched patient walk to bathroom, gait steady.
[2024-01-08 19:43] VITALS: BP 134/76; PULSE 72; RESP 22; TEMP 36.6; O2SAT 98
[2024-01-08 19:46] VITALS: BP 134/76; PULSE 72; RESP 22; TEMP 36.6; O2SAT 98
== END 2024-01-08 19:48 | disposition home or self-care (01) ==
PROVIDERS: Emergency Provider Physician Assistant; PCP Nurse Practitioner
DX: F10.229 Alcohol dependence with intoxication, unspecified (principal); Y90.8 Blood alcohol level of 240 mg/100 ml or more; S09.90XA Unspecified injury of head, initial encounter; W01.198A Fall on same level from slipping, tripping and stumbling with subsequent striking against other object, initial encounter
CPT/HCPCS: 36415; 70450; 72125; 80053; 82077; 82550; 83605; 84443; 85025; 85610; 85730; 93005; 96360; 99284; J7030

== ENCOUNTER 2024-08-07 10:18 | Emergency (ER) | payer BC, SELFPAY ==
[2024-08-07 10:19] VITALS: BP 139/95; PULSE 98; RESP 20; TEMP 36.6; O2SAT 100
--- OUTSIDE RECORDS SUMMARY | 2024-08-07 10:19 | XMS_ITS | Clinical Summary ---
Author Organization [facility] [address] [place] [id number] Care Team Providers Care Manager Programming Name Role Phone Queenie Solis MD Primary Care Provider [phone]- [phone] Allergies No known active allergies Medications hydrOXYzine (ATARAX) 10 mg tablet TAKE 1 TABLET BY MOUTH THREE TIMES DAILY NEEDED FOR ITCHING OR ANXIETY 05/26/2022 Active Active Problems Problem Noted Date Diagnosed Date Elevated ferritin 11/24/2021 07/28/2022 Elevated hemoglobin 11/24/2021 07/28/2022 Elevated liver enzymes 11/24/2021 3 Impaired fasting glucose 11/24/2021 023 Anxiety and depression 11/11/2021 3 Hair loss 11/11/2021 07/28/2022 Vaginal discharge 11/11/2021 07/28/2022 Social History Tobacco Use Types Packs/Day Years Used Date Smoking Tobacco: Never Smokeless Tobacco: Never Tobacco Cessation:Counseling Given: Not Answered Personal Safety Answer Date Recorded Getting School Help Needed Not on file 03/19 Comments Unknown Sex and Gender Information Value Date Recorded Sex Assigned at Not on file Legal Sex Female 9:02 AM CDT Gender Identity Not on file Sexual Orientation Not on file Obstetrics History Last Filed Vital Signs Vital Sign Reading Time Taken Comments Blood Pressure 120/80 07/28/2022 2:44 PM CDT Pulse 97 07/28/2022 2:44 PM CDT Temperature 37 C (98.6 F) 07/28/2022 2:44 PM CDT Respiratory Rate 18 07/28/2022 2:44 PM CDT Oxygen Saturation 97% 07/28/2022 2:44 PM CDT Inhaled Oxygen Concentration - - Weight 60.3 kg (133 lb) 07/28/2022 2:44 PM CDT Height 157.5 cm (5' 2) 07/28/2022 2:44 PM CDT Body Mass Index 24.33 07/28/2022 2:44 PM CDT Plan of Treatment Health Maintenance Due Date Last Done Comments Breast Cancer Screening-Mammogram 1983 Cervical Cancer Screening 1983 Depression Screening 1983 Hepatitis C Screening 1983 DTaP/Tdap/Td Vaccine (1 - Tdap) 12/22/1994 Varicella Vaccines (1 of 2 - 13+ 2-dose series) 12/22/1996 Hepatitis B Screening 12/22/2001 Regular Well Visit/Exam 18-64 12/22/2001 Influenza Vaccine (Season Ended) 2024 HPV Vaccines Aged Out No longer eligi ble based on patient's age to complete this topic Pneumococcal vaccine <65 Aged Out No longer eligible based on patient's age to complete this topic Insurance [facility] Care Teams Manager Programming Relationship Specialty Start Date End Date Queenie Solis MD PCP - General Nurse Practitioner 12/17/21
--- OUTSIDE RECORDS SUMMARY | 2024-08-07 10:19 | XMS_ITS | Referral Summary ---
Author Organization [facility] [address] Address [address] [place] [phone] Care Team Providers Care Student Life Vice President Name Role Phone Queenie Solis MD Primary Care Provider [phone]- [phone] Allergies No known active allergies Medications hydrOXYzine [...] on file Sexual Orientation Not on file Last Filed Vital Signs Vital Sign Reading [...] 07/28/2022 2:44 PM CDT Plan of Treatment Not on file Insurance Care Teams Student Life Vice President Relationship Specialty Start Date End Date Queenie Solis MD PCP - General Nurse Practitioner 12/17/21
--- OUTSIDE RECORDS SUMMARY | 2024-08-07 10:19 | XMS_ITS | Clinical Summary ---
Author Organization [facility] Address [address] [place] [address] Care Team Providers Care Backend Tester Name Role Phone MarioHamida vargheseagatha Plunkett APRN-[facility] Primary Care Provi balbina Source Comments [facility],non-owned Affiliates and Associated Physician Practices is amultiple site organization consisting of ambulatory clinics and hospital sitesin [place], [place], [place] and [place]. This disclosure is being madepursuant to the Care Everywhere program and may not contain all information available regarding this patient. Last updated 17.[facility] Social History Tobacco Use Types Packs/Day Years Used Date Smoking Tobacco: Never Assessed Comments Unknown Sex and Gender Information Value Date Recorded Sex Assigned at Not on file Legal Sex Female 8:11 AM CDT Gender Identity Not on file Sexual Orientation Not on file Plan of Treatment Health Maintenance Due Date Last Done Comments MAMMOGRAM 1985 PAP SMEAR 1983 HIV SCREENING 12/22/1998 DTAP/TDAP/TD VACCINES (1 - Tdap) 12/22/2002 HEPATITIS B VACCINE (1 of 3 - 19+ 3-dose series) 12/22/2002 COVID-19 VACCINE ( - 2023-2 5 season) 2023 DEPRESSION SCREENING 03/15/2024 INFLUENZA VACCINE (Season Ended) 2024 LIPID TESTING 11/18/2026 11/18/2021 ZOSTER VACCINE (1 of 2) 12/22/2033 HEPATITIS C SCREENING Completed 11/18/2021 HIB VACCINE Aged Out No longer eligi ble based on patient's age to complete this topic HPV VACCINE Aged Out No longer eligi ble based on patient's age to complete this topic MENINGOCOCCAL (Group B) VACC INE SHARED DECISION-MAKING Aged Out No longer eligibl e based on patient's age to complete this topic MENINGOCOCCAL GROUPS A/C/Y/W VACCINE Aged Out No longer eligible b ased on patient's age to complete this topic PNEUMOCOCCAL VACCINE Aged Out No long er eligible based on patient's age to complete this topic Insurance MEDICAID - [place] Care Teams Backend Tester Relationship Specialty Start Date End Date Queenie Solis APRN-[facility] [id number] [place] [id number] PCP - General 12/04/21
--- OUTSIDE RECORDS SUMMARY | 2024-08-07 10:20 | XMS_ITS | Data Portability ---
Author Organization [facility] [employer] , [facility] Address [address] [place] [address] Assessment No assessment recorded. Plan of Treatment Reminders Order Date Submit Date Provider Last Modified By Organization Details Last Modified Time Details Appointments None record ed. Lab None record ed. Referral None record ed. Procedures None record ed. Surgeries None record ed. Imaging None record ed. Medication Orders None record ed. Patient TargetsNo targets recorded. Patient InstructionsNo instructions recorded. Reason for Referral None Reported. Results Created Date Observation Date Name Description Value Unit Range Abnormal Flag Note LastModifiedBy Organization Detail LastModifiedTime 01/27/20 22 12/03/2021 , essence fernandez No observ ation record ed. [email or web address] Not Available 2021 10:23:01 Result Notes None recorded. Procedures Surgical History Date Name Laterality Status Provider Name and Address Organization Details Recorded Time Breast augmentation w/implt completed Ninfa Worthington [facility] [employer] 01/26/2022 11:11:51 Imaging Results None recorded. Procedure Notes None recorded. Medical Equipment None Reported. Allergies No known drug allergies Medications Name Sig Start Date Stop Date Status Note LastModified by Organization Details LastModified Time trazodone 50 mg tablet TAKE 1 TO 2 TABLETS BY MOUTH NEEDED FOR INSOMNIA . MAY CUT IN HALF IF TOO SEDATING 01/26 completed Not Available Not Available Not Available ofloxacin 0.3 % eye drops INSTILL 2 DROPS INTO EACH EYE 4 TIMES DAILY FOR 7 DAYS 01/26 completed Not Available Not Available Not Available prednisone 20 mg tablet TAKE 2 TABLETS BY MOUTH ONCE DAILY WITH FOOD FOR 5 DAYS 01/26 completed Not Available Not Available Not Available metronidazo le 500 mg tablet TAKE 1 TABLET BY MOUTH EVERY 12 HOURS 01/26 completed Not Available Not Available Not Available polymyxin B sulfate 10,000 unit-trimet hoprim 1 mg/mL eye drops INSTILL 1 DROP INTO EACH EYE EVERY 3 HOURS DIRECTED WHILE AWAKE FOR 7 DAYS 01/26 completed Not Available Not Available Not Available sertraline 50 mg tablet TAKE 1/2 (ONE-HALF ) TABLET BY MOUTH ONCE DAILY FOR 6 DAYS AND THEN INCREASE TO 1 TABLET ONCE DAILY. TAKE AT NIGHT IF SEDATING 01/26 completed Not Available Not Available Not Available Vitals Date Recorded Body height Body mass index (BMI) Body weight Systolic And Diastolic Provider Name and Address Organization Details Last Updated DateTime 01/26/2022 157.48 cm 24.3 kg/m2 65105.35 g 120/72 mm[Hg] Ninfa Worthington [facility] 01/26/2022 11:14:44 Social History Question Answer Notes LastModified by [employer] Details LastModified Time Tobacco Smoking Status Never Smoker Ninfa zamora, [facility] 01/26/2022 11:11:39 Are You Blind Or Do You Have Difficulty Seeing? No [email or web address] Information not available 01/26/2022 Are You Deaf Or Do You Have Serious Difficulty Hearing? No [email or web address] Information not available 01/26/2022 What Type Of Diet Are You Following? REGULAR [email or web address] Information not available 01/26/2022 How Many Children Do You Have? 1 [email or web address] Information not available 01/26/2022 What Is Your Relationship Status? Single [email or web address] Information not available 01/26/2022 Are You Sexually Active? Yes [email or web address] Information not available 01/26/2022 Sex: Unknown Functional Status Question Answer Note LastModified by [employer] Details LastModified Time Do you use any illicit or recreational drugs? No [email or web address] Information not available 01/26/2022 Do you or have you ever used any other forms of tobacco or nicotine? No [email or web address] Information not available 01/26/2022 What is your level of alcohol consumption? Occasional Information not available 01/26/2022 Mental Status None recorded. Family History Relationship Description Onset Age of this Age Resolved Age Notes LastModified by Organization Details LastModified Time Father No current problems or disability [email or web address] Not available 01/13 11:11:18 Mother No current problems or disability Not available 01/13 11:11:18 Medical History Condition Response Other Cancer N High Blood Pressure N Colon Cancer N Cytomegalovirus N Hyperthyroidism N MRSA N Blood Transfusion N Herpes (HSV) N Breast Cancer N Lung Cancer N Depression N Hypothyroidism N Incontinence N Panic Attacks N Neurological Disorder N Deep Vein Thrombosis N Anxiety Disorder N Autoimmune disease N Arthritis N Shingles N Tuberculosis/Positive PPD N Polycystic Ovarian Syndrome N Cervical Cancer N Chlamydia N Hematuria N Stroke N Varicosities N Seasonal allergies N Crohn's Disease N Alzheimer's/Dementia N COPD/Emphysema N Endometriosis N HPV/Genital Warts N IBS (Irritable Bowel Syndrome) N History of Abnormal Pap N High Cholesterol N Liver Disease N Kidney Infection N Fibromyalgia N Ulcer N Kidney Disease N HIV N Gallbladder disease N Von Willebrand disease N Sickle Cell Disease/Trait N ADD/ADHD N Eating Disorder N Diabetes Mellitus (non-insulin dependent ) N Anemia N Ovarian Problems N Multiple Sclerosis N Gonorrhea N Frequent Urinary Tract infections N Osteopenia N Headaches/migraines N GERD (reflux) N Ovarian Cancer N Diabetes (insulin dependent) N Seizures/Epilepsy N Fibroids N Asthma N Heart Attack N Endometrial Cancer N Lupus N Rubella N Blood Clotting Disorder N Bipolar Disorder N Diabetes Mellitus (during ) N Ulcerative Colitis N Hepatitis N Heart Disease N Pulmonary Embolism N RPR N Chicken Pox N Osteoporosis N Gynecological History Statement/Question Response Date of Last Pap Smear Current Control Method Implant Age at Menarche 10 Date of LMP 01/13/2022 Obstetrics History GPAL:G 3 P 2 0 1 2 Type Value Full Term 2 Spontaneous 1 Living 2 Total 3 Past Encounters Encounter ID Performer Location Encounter Start Date Encounter Closed Date Diagnosis/Indication Diagnosis SNOMED-CT Code Diagnosis ICD10 Code Diagnosis Note [id number] RAGHAVENDRA Moon [facility] [address] [place] [address] 01/26/2022 10:41:16 01/29/2022 10:39:47 Cyst of ovary 95375652 N83.209 U/S report from [facility] reviewed with pt. Pt educated on considerat ion for repeat TVUS and discussed normal physiologi c expectatio ns of ovarian function. Pt educated on torsion precaution s and when to notify HCP/go to ER. Pt given ACOG handout regarding ovarian cyst presence to review. Pt educated the ovarian cyst presence is not a cause of hair loss. Pt encouraged to F/U with PCP for further evaluation for hair loss. Pt encouraged to schedule repeat TVUS prior to leaving office. Pt states she would prefer to avoid repeat imaging as transvagin al probe was very uncomforta ble at the hospital. Pt states will F/U PRN. Uterine leiomyoma [id number] D25.9 U/S report from [facility] reviewed with pt. Pt educated on possible sx caused by fibroid presence. Pt educated on use of hormonal contracept gabriela to reduce pain and heavy menses associated with fibroid presence. Pt denies any issues with pelvic pain or heavy periods currently. Pt has Nexplanon in place for BCM. Pt given ACOG handout regarding uterine fibroids to review. Pt educated the uterine fibroid presence is not a cause of hair loss. Pt encouraged to F/U with PCP for further evaluation for hair loss. Pt to F/U at [facility] PRN if changes in periods that are undesirabl e. Pt states understand ing of POC. Health Concerns Section Related Observation LastModified by Organization Detai ls LastModified Time None Recorded Concern Status LastModified by Organization Details LastModified Time None Recorded Advance Directives Directive None Recorded Payers Insurance Date Sequence Insurance Name Policy Number Policy Valadez Covered Member ID Valadez Member ID Guarantor Name 02/16/2022 1 [place] [employer]PARTMENT [place] AID Bridget Mcneal [id number] Bridget Mcneal 02/16/2022 2 [place] Bridget Mcneal [id number] Bridget Mcneal 02/16/2022 1 [facility] (MEDICAID HMO) [id number] Bridget Mcneal [id number] Bridget Mcneal Notes Date Note Type Note Provider Name and Address Organization Details Recorded Time 01/26/2022 text/html Pt presents to [facility] for referral for bilateral ovarian cysts and uterine fibroid presence. Pt had imaging done at [facility] on 12/05/21 which showed a 1 x 2 cm ovarian cyst on the R ovary, and a 2 X 2 cm cyst on the L ovary. Multiple fibroids were also noted; none measuring > 2.5 cm. Pt has Nexplanon device in place for BCM. Pt notes intermittent menses that is not heavy or painful. Pt states she had imaging ordered to further evaluation her complaint of hair loss. Pt is concerned this could be due to PCOS. Pt denies any current pelvic pain, vaginal discharge, itching, or odor. Pt has no other concerns. RAGHAVENDRA Moon [address] [facility], [place], [address], [facility] 01/27/2022 17:12:38 OBGyn Episode No OBEpisode recorded.
--- NOTE | 2024-08-07 11:25 | PC.NURSE ---
buzzle buffer tells this RN who is caring for patient that comes back to ED waiting room from car and states, where's the drunk lady. buzzle buffer asks for the name of the patient and the states that their (the patient) is not having ear concerns, but that they were too intoxicated from alcohol to go to work today and is coming in for a work note. continuing care of patient.
--- NOTE | 2024-08-07 12:16 | PC.NURSE ---
pt states to this RN and their that they would prefer to go home and denies any concerns about ear. pt begins to walk out of ED with with steady gait and no resp. distress. states they will drive patient home. patient has not been seen by a provider.
--- OUTSIDE RECORDS SUMMARY | 2024-08-07 12:22 | XMS_ITS | Clinical Summary ---
Author Organization [facility] Address [address] [facility] [place] [address] Care Team Providers Care Parimutuel Clerk Name Role Phone MarioHamida vargheseagatha Plunkett APRN-[facility] Primary Care Provi balbina Source Comments [facility],non-owned Affiliates and Associated Physician Practices is amultiple site organization consisting of ambulatory clinics and hospital sitesin [place], [place], [place] and [place]. This disclosure is being madepursuant to the Care Everywhere program and may not contain all information available regarding this patient. Last updated 17.[facility] Social History Tobacco Use Types Packs/Day Years [...] topic Insurance [place] Care Teams Parimutuel Clerk Relationship Specialty Start Date End Date Queenie Solis APRN-[facility] [address] [place] [phone] PCP - General 12/04/21
== END 2024-08-07 12:16 | disposition left against medical advice (07) ==
PROVIDERS: Emergency Provider Emergency Medicine; PCP Nurse Practitioner
DX: H92.01 Otalgia, right ear (principal)
CPT/HCPCS: 99199

== ENCOUNTER 2024-08-25 20:45 | Emergency (ER) | payer BC, SELFPAY ==
--- NOTE | ~2024-08-25 | XR_ITS ---
XR finger 1st RT min 2V Ordering provider: Sis Llamas MD History: . poss thumb dislocation/fx . Comparison: None. FINDINGS/impression: BONES: Dislocated first right metacarpophalangeal joint with the phalanges dislocated laterally and p osteriorly. No definite fractures seen. Reviewed, dictated and finalized at location A.
--- NOTE | ~2024-08-25 | XR_ITS ---
XR finger 1st RT min 2V Ordering provider: Sis Llamas MD History: . reduction . Comparison: August 25, 2024 FINDINGS/impression: Status post reduction of the dislocated first metacarpophalangeal joint with fluid alignment. No defi nite fractures seen. Reviewed, dictated and finalized at location A.
[2024-08-25 20:47] VITALS: BP 129/92; PULSE 105; RESP 18; TEMP 36.8; O2SAT 98
--- OUTSIDE RECORDS SUMMARY | 2024-08-25 20:47 | XMS_ITS | Referral Summary ---
Author Organization [facility] [address] Address [address] [place] [address] Care Team Providers Care Salesperson Burial Needs Name Role Phone Queenie Solis MD Primary Care Provider +1- [phone] Allergies No known active allergies Medications hydrOXYzine [...] Treatment Not on file Insurance Care Teams Salesperson Burial Needs Relationship Specialty Start Date End Date Queenie Slois MD PCP - General Nurse Practitioner 12/17/21
--- OUTSIDE RECORDS SUMMARY | 2024-08-25 20:47 | XMS_ITS | Clinical Summary ---
Author Organization [facility] [address] Address [address] [place] [address] Care Team Providers Care Sign Wirer Name Role Phone Queenie Solis MD Primary Care Provider +1- [phone] Allergies No known active allergies Medications hydrOXYzine [...] patient's age to complete this topic Insurance [facility] Care Teams Sign Wirer Relationship Specialty Start Date End Date Queenie Solis MD PCP - General Nurse Practitioner 12/17/21
--- OUTSIDE RECORDS SUMMARY | 2024-08-25 20:48 | XMS_ITS | Data Portability ---
Author Organization [facility] [employer] , [facility] Address [address] [place] [address] Assessment No assessment recorded. Plan of Treatment [...] Time Breast augmentation w/implt completed Ninfa Worthington [facility] [employer] 01/26/2022 11:11:51 Imaging Results None recorded. Procedure [...] Body mass index (BMI) Body weight Systolic blood pressure Diastolic blood pressure Provider Name and Address Organization Details Last Updated DateTime 01/26/2022 157.48 cm 24.3 kg/m2 56807.35 g 120 mm[Hg] 72 mm[Hg] Ninfa Worthington [employer] 11:14:44 Social History Question Answer Notes LastModified by [employer] Details LastModified Time Tobacco Smoking Status Never Smoker Ninfa zamora, [employer] 01/26/2022 11:11:39 Are You Blind Or Do You Have Difficulty Seeing? No [email or web address] Information not available 01/26/2022 Are You Deaf Or Do You Have Serious Difficulty Hearing? No [email or web address] Information not available 01/26/2022 What Type Of Diet Are You Following? REGULAR [email or web address] Information not available 01/26/2022 How Many Children Do You Have? 1 [email or web address] Information not available 01/26/2022 What Is Your Relationship Status? Single [email or web address] Information not available 01/26/2022 Are You Sexually Active? Yes [email or web address] Information not available 01/26/2022 Sex: Unknown Functional Status Question Answer Note LastModified by [employer] Details LastModified Time Do you use any illicit or recreational drugs? No Information not available 01/26/2022 Do you or have you ever used any other forms of tobacco or nicotine? No [email or web address] Information not available 01/26/2022 What is your level of alcohol consumption? Occasional [email or web address] Information not available 01/26/2022 Mental Status None recorded. Family History Relationship Description Onset Age of this Age Resolved Age Notes LastModified by Organization Details LastModified Time Father No current problems or disability [email or web address] Not available 01/13 11:11:18 Mother No current problems or disability [email or web address] Not available 01/13 11:11:18 Medical History Condition [...] Polycystic Ovarian Syndrome N Cervical Cancer N Hematuria N Chlamydia N Varicosities N Stroke N Seasonal allergies N Crohn's Disease N Alzheimer's/Dementia N COPD/Emphysema N Endometriosis N HPV/Genital Warts N IBS (Irritable Bowel Syndrome) N History of Abnormal Pap N High Cholesterol N Liver Disease N Fibromyalgia N Kidney Infection N Ulcer N Kidney Disease N HIV N Gallbladder disease N Sickle Cell Disease/Trait N Von Willebrand disease N ADD/ADHD N Eating Disorder N Anemia N Diabetes Mellitus (non-insulin dependent ) N Ovarian Problems N Multiple Sclerosis N Gonorrhea N Frequent Urinary Tract infections N Osteopenia N Headaches/migraines N GERD (reflux) N Ovarian Cancer N Diabetes (insulin dependent) N Seizures/Epilepsy N Fibroids N Heart Attack N Asthma N Lupus N Endometrial Cancer N Rubella N Blood Clotting Disorder N [...] SNOMED-CT Code Diagnosis ICD10 Code Diagnosis Note [id number] RAGHAVENDRA Moon [facility] [address] [place] [address] 01/26/2022 10:41:16 01/29/2022 10:39:47 Cyst of ovary [id number] N83.209 U/S report from [facility] reviewed with pt. Pt educated on considerat [...] Pt states will F/U PRN. Uterine leiomyoma [id number] D25.9 U/S report from [facility] reviewed with pt. Pt educated on possible [...] for hair loss. Pt to F/U at [facility] PRN if changes in periods that [...] Member ID Guarantor Name 02/16/2022 1 [place] Bridget Mcneal [id number] Bridget Mcneal 02/16/2022 2 [place] Bridget Mcneal [id number] Bridget Mcneal 02/16/2022 1 [facility] (MEDICAID HMO) [id number] Bridget Mcneal [id number] Bridget Mcneal Notes Date Note Type Note Provider Name and Address Organization Details Recorded Time 01/26/2022 text/html Pt presents to [facility] for referral for bilateral ovarian cysts and uterine fibroid presence. Pt had imaging done at [facility] on 12/05/21 which showed a 1 x [...] Pt has no other concerns. RAGHAVENDRA Moon [address] [facility], [place], [address], [facility] 01/27/2022 17:12:38 OBGyn Episode No OBEpisode recorded.
--- OUTSIDE RECORDS SUMMARY | 2024-08-25 20:48 | XMS_ITS | Clinical Summary ---
Author Organization [facility] Address [address] [facility] [place] [address] Care Team Providers Care Nuclear Weapons Custodian Name Role Phone MarioHamida vargheseagatha Plunkett APRN-[facility] Primary Care Provi balbina Source Comments [facility],non-owned Affiliates and Associated Physician Practices is amultiple site organization consisting of ambulatory clinics and hospital sitesin [place], [place], [place] and [place]. This disclosure is being madepursuant to the Care Everywhere program and may not contain all information available regarding this patient. Last updated 17.[facility] Social History Tobacco Use Types Packs/Day Years [...] topic Insurance [place] Care Teams Nuclear Weapons Custodian Relationship Specialty Start Date End Date Queenie Solis APRN-[facility]ORD[facility] [address] [place] [id number] PCP - General 12/04/21
--- OUTSIDE RECORDS SUMMARY | 2024-08-25 21:15 | XMS_ITS | Clinical Summary ---
Author Organization [facility] [address] Address [address] [place] [address] Care Team Providers Care Financial Administrative Assistant Name Role Phone Queenie Solis MD Primary Care Provider +1- [phone] Allergies No known active allergies Medications hydrOXYzine [...] to complete this topic Insurance [facility] Care Teams Financial Administrative Assistant Relationship Specialty Start Date End Date Queenie Solis MD PCP - General Nurse Practitioner 12/17/21
--- OUTSIDE RECORDS SUMMARY | 2024-08-25 21:15 | XMS_ITS | Clinical Summary ---
Author Organization [facility] Address [address] [facility] [place] [address] Care Team Providers Care Technology Engineer Name Role Phone MarioHamida vargheseagatha Plunkett APRN-[facility] Primary Care Provi balbina Source Comments [facility],non-owned Affiliates and Associated Physician Practices is amultiple site organization consisting of ambulatory clinics and hospital sitesin [place], [place] and [place]. This disclosure is being madepursuant to the Care Everywhere program and may not contain all information available regarding this patient. Last updated 17.[facility] Social History Tobacco Use Types Packs/Day [...] topic Insurance [place] Care Teams Technology Engineer Relationship Specialty Start Date End Date Queenie Solis APRN-[facility]ORD[facility] [address] [place] [id number] PCP - General 12/04/21
--- OUTSIDE RECORDS SUMMARY | 2024-08-25 21:15 | XMS_ITS | Referral Summary ---
Author Organization [facility] [address] Address [address] [place] [address] Care Team Providers Care Sheriff'S Detective Name Role Phone Queenie Solis MD Primary Care Provider +1- [phone] Allergies No known active allergies Medications hydrOXYzine [...] Treatment Not on file Insurance Care Teams Sheriff'S Detective Relationship Specialty Start Date End Date Queenie Solis MD PCP - General Nurse Practitioner 12/17/21
[2024-08-25] MEDS: oxyCODONE/ACETAMINOPHEN (*CRX) 5-325 MG TABLET 1 TABLET PO (21:18)
--- NOTE | 2024-08-25 21:22 | ED.UPPEXIN ---
HPI - Extremity Injury (Upper) General Chief Complaint: Extremity Injury, Upper Stated Complaint: finger dislocation Time Seen by Provider: 08/25/24 20:50 History of Present Illness HPI narrative: Patient presents here with thumb injury, she had slipped and fallen coming out of the hot tub and landed on her right thumb, she is crying with pain. Related Data Home Medications ?Medication ?Instructions ?Recorded ?Confirmed ?Last Taken ?Type dimenhydrinate 50 mg tablet 50 mg PO Q4-6H PRN DIZZINESS 11/27/22 11/27/22 Unknown History (Dramamine) Allergies Allergy/AdvReac Type Severity Reaction Status Date / Time No Known Allergies Allergy Verified 01/08/24 18:10 Review of Systems Review of Systems: All systems reviewed & are unremarkable except as noted in HPI and below PMFSH Surgical History Surgical History No significant past surgical history Family History Family History Sibling Diabetes mellitus Father Alcohol abuse Social History Social History Smoking status: Never smoker Alcohol intake: current Drinks per week: 4 Lack of Transportation: No Lack of Food: Never True Current Housing: I Have Housing Concerned About Future Housing: No Difficulty Paying Gas/Electric Bills: No Difficulty Paying for Meds: No Currently Unemployed: No Education: Bachelor's Degree Difficulty w/ Childcare or Family Care: No Spiritual care concerns: No Exam Narrative: EXAMINATION OF ORGAN SYSTEMS/BODY AREAS: Constitutional: Vital signs per nursing GENERAL: Crying HEAD: Normal with no signs of head trauma. EYES: EOMI, conjunctiva normal ENT: Hearing grossly intact LUNGS: Nonlabored breathing. HEART: Normal capillary refill to right thumb ABD: [Soft], [nontender to palpation] EXT: Obvious thumb dislocation SKIN: [No rashes or lesions.] NEURO: [Alert. Normal sensation to right thumb.] PSYCH: Normal affect Course Vital Signs Vital signs: Vital Signs Temperature 98.3 F 08/25/24 20:47 Pulse Rate 105 H 08/25/24 20:47 Respiratory Rate 18 08/25/24 20:47 Blood Pressure 129/92 H 08/25/24 20:47 Pulse Oximetry 98 08/25/24 20:47 Oxygen Delivery Room Air 08/25/24 20:47 Temperature 98.3 F 08/25/24 20:47 Pulse Rate 105 H 08/25/24 20:47 Respiratory Rate 18 08/25/24 20:47 Blood Pressure 129/92 H 08/25/24 20:47 Pulse Oximetry 98 08/25/24 20:47 Oxygen Delivery Room Air 08/25/24 20:47 Procedures Nerve Block Nerve Block 1: Nerve block date: 08/25/24 Nerve block time: 21:26 Local Anesthetic: lidocaine 1% Amount of anesthesia used (mL): 3 Side: right Nerve Blocks: digital Procedure Successful: Yes Patient Tolerated Procedure: well and no complications Orthopedic Joint Reduction Joint #1: Orthopedic Joint Reduction Date: 08/25/24 Orthopedic Joint Reduction Time: 21:24 Side: right Joint Reduction Location: finger Analgesia: nerve block Pre-Procedure Neuro Vascular Exam: normal Amount of anesthesic used (mL): 3 Technique used: traction/counter-traction and direct manipulation Post-reduction neuro exam: intact and no change Post-reduction vascular: intact and no change Splint Applied: Yes Patient Tolerated Procedure: well and no complications Additional Comments: reduction assistance Dr Petit much appreciated Orthopedic Splinting/Casting Injury #1: Splinting/Casting Date: 08/25/24 Splinting/Casting Time: 21:26 Side: right Upper Extremity Injury Location: hand and finger Upper Extremity Immobilizer: thumb spica Splint: customized in ED Pre-Procedure Neuro Vascular Exam: normal Post-Procedure Neuro Vascular Exam: normal MDM - Extremity Injury (Upper) MDM Narrative Medical decision making narrative: Patient here with right thumb injury, on exam obviously dislocated, I did perform ring block which is very effective, initial attempt at reduction unsuccessful, on 2nd time Dr Petit was able to reduce thumb successfully, much appreciate his assistance. X-ray confirms reduction and she is placed in thumb spica splint with follow-up to Hand surgery for further issues. Partner at bedside who will be taking her home. Discharge Plan Discharge Clinical Impression: Dislocation closed, finger Patient Disposition: Home Condition: Stable Instructions: Finger Dislocation (ED) Additional Instructions: Please follow-up with the hand surgeon, try to keep your hand in the splint, you can always return to the emergency room for any further issues. Patient Language: Slovenian Prescriptions: New acetaminophen [Tylenol Extra Strength] 500 mg tablet 1,000 mg PO Q6H PRN (Reason: pain) Qty: 50 0RF methocarbamol 750 mg tablet 750 mg PO TID PRN (Reason: muscle spasm) Qty: 30 0RF ibuprofen 600 mg tablet 600 mg PO TID PRN (Reason: fever or pain) Qty: 30 0RF oxycodone 5 mg tablet 5 mg PO Q8H PRN (Reason: pain) Qty: 3 0RF No Action dimenhydrinate [Dramamine] 50 mg Tablet 50 mg PO Q4-6H PRN (Reason: DIZZINESS) Follow-up/Referrals: Tosha Chapman MD [Physician] - 2 Days Irma,RIA Estes [Primary Care Provider] -
--- NOTE | 2024-08-25 21:23 | PC.NURSE ---
Thumb reduced by MD x2. Patient tolerated well. Tech at bedside for thumb spica
== END 2024-08-25 22:02 | disposition home or self-care (01) ==
PROVIDERS: Emergency Provider Emergency Medicine; PCP Nurse Practitioner
DX: S63.114A Dislocation of metacarpophalangeal joint of right thumb, initial encounter (principal); W01.0XXA Fall on same level from slipping, tripping and stumbling without subsequent striking against object, initial encounter
CPT/HCPCS: 26605; 26700; 73140; 99285; A9270

== ENCOUNTER 2025-02-22 19:22 | Emergency (ER) | payer BC, OTHER, SELFPAY ==
[2025-02-22 19:24] VITALS: BP 133/92; PULSE 120; RESP 18; TEMP 36.8; O2SAT 98
--- OUTSIDE RECORDS SUMMARY | 2025-02-22 19:41 | XMS_ITS | Clinical Summary ---
Author Organization [facility] [address] Address [address] [place] [address] Care Team Providers Care Pool Technician Name Role Phone Queenie Solis MD Primary Care Provider +1- [phone] Allergies No known active allergies Medications hydrOXYzine [...] Screening 12/22/2001 Regular Well Visit/Exam 18-64 12/22/2001 HPV Vaccines (1 - 3-dose SCD M series) 12/22/2010 Influenza Vaccine (#1) 2024 Pneumococcal vaccine <65 Aged Out No longer eligible based on patient's age to complete this topic Insurance [facility] Care Teams Pool Technician Relationship Specialty Start Date End Date Queenie Solis MD PCP - General Nurse Practitioner 12/17/21
--- OUTSIDE RECORDS SUMMARY | 2025-02-22 19:41 | XMS_ITS | Clinical Summary ---
Author Organization [facility] Address [address] [facility] [place] [address] Care Team Providers Care Cognos Administrator Name Role Phone ToluHamida ayersagatha Plunkett MD PHYSICIAN DERMATOLOGIST-[facility] Primary Care Provi balbina Source Comments [facility],non-owned Affiliates and Associated Physician Practices is amultiple site organization consisting of ambulatory clinics and hospital sitesin [place], [place], [place] and [place]. This disclosure is being madepursuant to the Care Everywhere program and may not contain all information available regarding this patient. Last updated 17.[facility] Social History Tobacco Use Types Packs/Day Years Used Date Smoking Tobacco: Never Assessed Comments Unknown Sex and Gender Information Value Date Recorded Sex Assigned at Not on file Legal Sex Female 8:11 AM CDT Gender Identity Not on file Sexual Orientation Not on file Plan of Treatment Health Maintenance Due Date Last Done Comments MAMMOGRAM 1983 HIV SCREENING 12/22/1998 HEPATITIS C SCREENING 12/18/2001 DTAP/TDAP/TD VACCINES (1 - Tdap) 12/22/2002 HEPATITIS B VACCINE (1 of 3 - 19+ 3-dose series) 12/22/2002 PAP SMEAR 12/22/2004 HPV VACCINE (1 - 3-dose SCDM series) 12/22/2010 DEPRESSION SCREENING 03/15/2024 COVID-19 VACCINE (1 - 2024-2 6 season) 2024 INFLUENZA VACCINE (#1) 2024 LIPID TESTING 11/18/2026 11/18/2021 ZOSTER VACCINE (1 of 2) 12/22/2033 HIB VACCINE Aged Out No longer eligi [...] topic Insurance [place] Care Teams Cognos Administrator Relationship Specialty Start Date End Date Queenie Solis APRN-[facility] [address] [place] [address] PCP - General 12/04/21
--- OUTSIDE RECORDS SUMMARY | 2025-02-22 19:41 | XMS_ITS | Clinical Summary ---
Author Organization [facility] Address [address] [place] [address] Care Team Providers Care Medical Record Specialist Name Role Phone Queenie Solis NP Primary Care Provider +1 -[phone] Allergies No known active allergies Medications naltrexone (DEPADE) 50 MG tabletIndication s:Alcohol use Take 1 tablet (50 mg total) by mouth daily. 30 tablet 12/01/2022 Active Active Problems Problem Noted Date Diagnosed Date Elevated ferritin 11/24/2021 Elevated hemoglobin 11/24/2021 Elevated liver enzymes 11/24/2021 Impaired fasting glucose 11/24/2021 Hair loss 11/11/2021 Vaginal discharge 11/11/2021 Anxiety and depression 11/11/2021 Family History Medical History Relation Comments Depression Brother Alcohol Abuse Father Diabetes Sister Relation Status Comments Brother Father Sister Social History Tobacco Use Types Packs/Day Years Used Date Smoking Tobacco: Never Passive Smoke Exposure: Never Smokeless Tobacco: Never Tobacco Cessation:Counseling Given: Not Answered Alcohol Use Standard Drinks/Week Comments Yes 6.7 (1 standard drink = 0.6 oz p ure alcohol) PHQ-2 Answer Date Recorded PHQ-2 Score - If the patient scores above 3, please move on to questions 3-9 2 11/11/2021 Comments No Sex and Gender Information Value Date Recorded Sex Assigned at Not on file Legal Sex Female 1:03 PM CDT Gender Identity Not on file Sexual Orientation Not on file Last Filed Vital Signs Vital Sign Reading Time Taken Comments Blood Pressure 139/89 12/01/2022 8:23 AM CDT Pulse 86 12/01/2022 8:23 AM CDT Temperature 37.3 C (99.1 F) 12/01/2022 8:23 AM CDT Respiratory Rate 18 12/01/2022 8:23 AM CDT Oxygen Saturation 99% 12/01/2022 8:23 AM CDT Inhaled Oxygen Concentration - - Weight 59.7 kg (131 lb 9.6 oz) 12/01/2022 8:23 A M CDT Height 157.5 cm (5' 2) 12/01/2022 8:23 AM CDT Body Mass Index 24.07 12/01/2022 8:23 AM CDT Plan of Treatment Health Maintenance Due Date Last Done Comments Cervical Cancer Screening Pa p Smear (Age 30 to 64) Every 3 Years 1983 DTaP, Tdap and Td Vaccines ( 1 - Tdap) 12/22/2002 Hepatitis B Vaccines (1 of 3 - 19+ 3-dose series) 12/22/2002 HPV Vaccines (1 - 3-dose SCD M series) 12/22/2010 Cervical Cancer Screening Pa p with HPV Testing (Age 30 to 64) Every 5 Years 12/22/2013 Cervical Cancer Screening with HPV 12/22/2013 Annual Physical 11/11/2022 11/11/2021 Mammogram Screening 2023 PHQ-2 (Physician [place]) 03/15/2024 COVID-19 Vaccine (2 6 season) 2024 Influenza Adult (#1) 2024 Hepatitis C Completed 11/18/2021 Hepatitis A Vaccines Aged Out No long er eligible based on patient's age to complete this topic Meningococcal B Vaccine Aged Out No l onger eligible based on patient's age to complete this topic Meningococcal Vaccine Aged Out No oli vonda eligible based on patient's age to complete this topic Pneumococcal Vaccine: Pediat rics (0 to 5 Years) and At-Risk Patients (6 to 49 Years) Aged Out No longer eligi ble based on patient's age to complete this topic RSV Immunizations Under 20 Months Aged Out No longer eligible based on patient's age to complete this topic Procedures Procedure Name Priority Date/Time Associated Diagnosis Comments HEPATITIS C ANTIBODY W/RFX TO HCV RNA Routine 11/18/2021 8:05 AM CDT Need for hepatitis C screening test from Last 3 Months or Most Recently Relevant to Health Maintenance Results * HEPATITIS C ANTIBODY W/RFX TO HCV RNA ([facility] ONLY) (11/18/2021 8:05 AM CDT) HEPATITIS C AB NON-REACTI VE NON-REACT ESEQUIEL [facility] SIGNAL TO CUTOFF 0.01 <[address] [facility] Comment: HCV antibody was non-reactive. There is no laboratory evidence of HCV infection. In most cases, no further action is required. However, if recent HCV exposure is suspected, a test for HCV RNA (test code 84274) is suggested. For additional information please refer to http://education.[employer]/faq/AHA18k8 (This link is being provided for informational/ educational purposes only.) 11/18/2021 8:05 AM CDT 11/18/2021 8:06 AM CDT Narrative [facility] - 11/19/2021 10:56 AM CDT FASTING:NO FASTING: NO Queenie Solis NP LABORATORY Final Res ult [facility] [address] [facility] [place] [address] from Last 3 Months or Most Recently Relevant to Health Maintenance Insurance [place] [employer] Care Teams Medical Record Specialist Relationship Specialty Start Date End Date Queenie Solis NP [address] [place] [address] PCP - General NURSE PRACTITIONER 11/04/21
--- NOTE | 2025-02-22 22:20 | PC.NURSE ---
No answer when called for repeat VS.
--- NOTE | 2025-02-22 22:33 | PC.NURSE ---
Pt noted to not be in waiting room at this time. Assumed pt LWBS.
== END 2025-02-22 22:33 | disposition left against medical advice (07) ==
LOC: ANHED 23:18
PROVIDERS: PCP Nurse Practitioner
DX: R42 Dizziness and giddiness (principal)
CPT/HCPCS: 99199